=== PATIENT | female | born 1955 | race Hispanic/Latino ===

== ENCOUNTER → 2023-10-05 | Outpatient (CLI) | payer OTHER, MEDICARE ==
[2023-10-05 12:43] LABS: CREATININE 0.8 mg/dL (0.5-1.0); MAGNESIUM 1.8 mg/dL (1.80-2.40); POTASSIUM 4.4 mmol/L (3.5-5.1)
== END | disposition home or self-care (01) ==
LOC: LAB 08:41
PROVIDERS: ATTEND Internal Medicine Cardiovascular Disease
DX: R06.09 Other forms of dyspnea (principal)
CPT/HCPCS: 36415; 80048; 83735; 83880; 84100

== ENCOUNTER → 2023-10-18 | Outpatient (CLI) | payer OTHER, MEDICARE | END | disposition home or self-care (01) | LOC: RAH 14:02 | PROVIDERS: ATTEND Internal Medicine Cardiovascular Disease | DX: I35.8 Other nonrheumatic aortic valve disorders (principal); I51.7 Cardiomegaly; R06.00 Dyspnea, unspecified | CPT/HCPCS: 93306 ==

== ENCOUNTER → 2024-07-15 | Outpatient (CLI) | payer OTHER, MEDICARE ==
[2024-07-15 12:11] LABS: BASOPHILS # (AUTO) 0.05 K/uL (0.00-0.20); BASOPHILS % (AUTO) 0.7 % (0.0-5.0); EOSINOPHILS # (AUTO) 0.24 K/uL (0.00-0.70); EOSINOPHILS % (AUTO) 3.4 % (0.0-8.0); HEMATOCRIT 39.6 % (36-48); IMMATURE GRANULOCYTE ABSOLUTE 0.03 K/uL (0-1); LYMPHOCYTES # (AUTO) 2.9 K/uL (1.0-4.8); LYMPHOCYTES % (AUTO) 41.8 % (21.0-51.0); MEAN CORPUSCULAR HEMOGLOBIN 30.5 pg (27.0-33.0); MEAN CORPUSCULAR HGB CONC 32.8 g/dL (32.0-36.0); MONOCYTES # (AUTO) 0.5 K/uL (0.1-1.0); MONOCYTES % (AUTO) 6.4 % (3.0-13.0); NEUTROPHILS # (AUTO) 3.3 K/uL (1.8-7.7); NEUTROPHILS % (AUTO) 47.3 % (40.0-77.0); NUCLEATED RED BLOOD CELLS 0.3 % (0.0-0.19); PLATELET COUNT (AUTO) 154 K/uL (130-400); RED BLOOD CELL COUNT(AUTO) 4.26 MIL/uL (4.00-5.50); RED CELL DISTRIBUTION WIDTH 14.9 % (11.0-15.5)
[2024-07-15 12:33] LABS: CREATININE 0.6 mg/dL (0.5-1.0); POTASSIUM 4.6 mmol/L (3.5-5.1)
== END | disposition home or self-care (01) ==
LOC: LAB 11:04
PROVIDERS: ATTEND Urology
DX: R10.84 Generalized abdominal pain (principal)
CPT/HCPCS: 36415; 80048; 85025

== ENCOUNTER → 2024-08-13 | Outpatient (CLI) | payer OTHER, MEDICARE ==
[~2024-08-13] MED LIST: IOHEXOL 350 MG/ML 100ML INFUS..BTL IV ONE
--- NOTE | 2024-08-13 12:29 | HMCIMG ---
CT UROGRAM (ABD/PEL WWO) HISTORY: Abdominal pain COMPARISON: None TECHNIQUE: Multiple sequential axial images of the abdomen and pelvis were obtained from the dome of the diaphragm through symphysis pubis. Patient was given 100 cc of Omnipaque through intravenous route. Oral contrast was not given. CT urogram was performed. FINDINGS: No pleural effusion is seen bilaterally. There is no evidence of parenchymal disease or pulmonary nodule of the visualized lower lungs. Degenerative changes of the thoracolumbar spine are present. The heart is not enlarged. Liver is enlarged measuring 15.3 cm. There are multiple hepatic cysts with the largest in the left hepatic lobe measuring 2.1 cm. The liver, spleen, adrenal glands and pancreas are unremarkable. There is no evidence of hydronephrosis bilaterally. No evidence of renal stone is seen. Fecal material is seen in the colon. There are normal size retroperitoneal and mesenteric lymph nodes. No ascites is seen. Atherosclerotic changes are present. CT urogram shows no evidence of obstruction. Distal portion of the left ureter is not well visualized. Pelvic sidewalls are symmetric bilaterally. Bladder is well distended without wall thickening. IMPRESSION: 1. CT urogram shows no evidence of obstruction. Distal portion of the left ureter is not well visualized. CT was performed with one or more following dose reduction techniques: automated exposure control, adjustment of the mA and kv according to patient's size, or use of a iterative reconstruction technique.
== END | disposition home or self-care (01) ==
LOC: RAH 07:38
PROVIDERS: ATTEND Urology
DX: K76.89 Other specified diseases of liver (principal); R16.0 Hepatomegaly, not elsewhere classified; M47.815 Spondylosis without myelopathy or radiculopathy, thoracolumbar region; I70.90 Unspecified atherosclerosis; R10.84 Generalized abdominal pain
CPT/HCPCS: 74178; Q9967

== ENCOUNTER 2024-12-20 19:38 | Emergency (ER) | payer OTHER, MEDICARE ==
[~2024-12-20] VITALS: Ht 152.4 cm; Wt 77.1 kg
--- NOTE | 2024-12-20 21:26 | HMCIMG ---
EXAM: CR Left Shoulder, 2 views. CLINICAL HISTORY: Injury. COMPARISON: None. FINDINGS: No acute fracture or aggressive appearing osseous lesion. Mild diffuse osteopenia. Moderate glenohumeral and acromioclavicular osteoarthritis with a large osteophyte projecting along the medial surface of the humeral head. The soft tissues are unremarkable. IMPRESSION: No acute bony changes. Mild diffuse osteopenia. Moderate glenohumeral and acromioclavicular osteoarthritis with a large osteophyte projecting along the medial surface of the humeral head. /Kirkman
[2024-12-20] MEDS ORDERED: KETO10TA2 PO (22:32)
[2024-12-20] MEDS ORDERED: CYCL10TA16 PO (22:32)
--- NOTE | 2024-12-20 22:33 | ERN ---
General Chief Complaint: Shoulder Injury/Pain Stated Complaint: L SHOULDER STRAIN Time Seen by MD: 19:58 Time Seen by Midlevel: 19:58 Source: patient History of Present Illness Initial Comments 61-year-old female with who is hard of hearing presents to the emergency department with left shoulder pain after she carried heavy things in her home while she was cleaning. Denies any direct injury or fall. They are at denies any other symptoms. Patient was here for symptom control. Allergies: Coded Allergies: No Known Drug Allergies (Unverified Allergy, Unknown, 12/20/24) Past Medical History Past Medical History: Anxiety, Hypertension Past Surgical History: Unknown ROS Dictation CONSTITUTIONAL: Negative except for HPI HEAD/FACE: Negative except for HPI EENT: Negative except for HPI RESPIRATORY: Negative except for HPI GASTROINTESTINAL/ABDOMINAL: Negative except for HPI GENITOURINARY: Negative except for HPI MUSCULOSKELETAL: Negative except for HPI INTEGUMENTARY: Negative except for HPI NEUROLOGICAL/PSYCH: Negative except for HPI HEMATOLOGIC/LYMPHATIC: Negative except for HPI All Systems Negative, Except as noted above. 13 point review of systems assessed and all negative except for above. Physical Exam Physical Exam Dictation Vital Signs reviewed General Appearance: Alert, oriented x 3, no acute distress, well developed, nourished. Head and Face: non-traumatic. Eyes: PERRL, pink conjunctivas, eyelid no trauma, anterior chamber with arcus senilis. Ears: Pinnas intact and no signs of trauma or erythema ear canals clear and no discharge TM no erythema Nose: No discharge, no bleeding. Oropharynx: Mouth normal, tongue pink, pharynx clear,no erythema, tonsils no exudates, no abscesses noted, mucous membrane moist Neck: Supple, non-tender, no thyromegaly, no masses, no JVD, no bruits Breast:Deferred Chest:No tenderness, no crepitus, no paradoxical movement, no retractions Lungs:Clear, well-ventilated, symmetric, no rales, no wheezing, no rhonchi, no stridor, good breath sounds bilaterally Heart: Regular rate, regular rhythm, no murmur, no gallops Vascular: no peripheral edema, Abdomen: Soft, positive bowel sounds, nondistended, no guarding, nontender, no rebound, no masses no hepatomegaly, no splenomegaly, no Lee's sign, no hernias. Rectal: Deferred Genital: Deferred Neurological: Normal speech, motor function intact, sensory function intact Musculoskeletal: Neck nontender, full range of motion, back nontender, full range of motion, Extremities: nontender, full range of motion Skin: Color pink, dry, no turgor, no rash, no lacerations, no abrasions, no contusions. Lymphatic: Deferred MDM MDM: Differential diagnosis: Shoulder strain, contusion, fracture There are no social concerns with this patient. Prescription drug management Prescriptions will include: Toradol and Flexeril Medical management and examination interpretation discussions were had by me with other qualified healthcare professionals as indicated for the patient's care. ED Course Orders Procedure Category Date Status Time Shoulder Comp 2+Vws Lt RAD 12/20/24 Resulted 19:45 Ketorolac PHA 12/20/24 Logged Tromethamine 30mg/Ml 22:30 Current Medications Medications (Trade) Dose Ordered Sig/Paco Route PRN Reason Start Time Stop Time Status Last Admin Dose Admin Ketorolac Tromethamine (toRADol) 30 mg ONCE ONCE IM 12/20/24 22:30 12/20/24 22:31 UNV Vital Signs Date Time Temp Pulse Resp B/P (MAP) Pulse Ox O2 Delivery O2 Flow Rate FiO2 12/20/24 20:45 98.2 89 18 155/90 96 Room Air* 0 12/20/24 19:50 98.4 87 19 158/89 98 Room Air* 0 12/20/24 19:39 98.2 62 17 184/75 98 Room Air 0 DX & DISP Disposition: Discharge Departure Impression: Primary Impression: Left shoulder strain Additional Impression: Arthritis of left shoulder Condition: Stable Scripts Cyclobenzaprine HCl (Flexeril) 10 Mg Tab 10 MG PO TID for muscle sstiffness for 5 Days, #15 TAB 0 Refills Prov: OUSMANE TRAN 12/20/24 Ketorolac Tromethamine (Ketorolac Tromethamine) 10 Mg Tablet 1 TAB PO BID for pain for 5 Days, #10 TAB 0 Refills Prov: OUSMANE TRAN 12/20/24 Referrals: AYLEEN MATOS MD (PCP) Time of Disposition: 22:32 I have reviewed the case, and I agree with, Diagnosis and Plan I performed the substantive portion of the visit. I have reviewed and personally made and approve the management plan that is documented in the note by myself or the ZEINA. I acknowledge for responsibility for the patient's management plan. OUSMANE TRAN Dec 20, 2024 22:33
[2024-12-20 22:45] VITALS: BP 149/85; PULSE 83; RESP 17; TEMP 98; O2SAT 99
== END 2024-12-20 22:45 | disposition home or self-care (01) ==
LOC: EDH 19:38
DX: S46.912A Strain of unspecified muscle, fascia and tendon at shoulder and upper arm level, left arm, initial encounter (principal); M19.012 Primary osteoarthritis, left shoulder; I10 Essential (primary) hypertension; X58.XXXA Exposure to other specified factors, initial encounter; Y93.89 Activity, other specified; Y92.89 Other specified places as the place of occurrence of the external cause; Y99.8 Other external cause status
CPT/HCPCS: 99285; 73030; 96372; J1885

== ENCOUNTER → 2024-12-30 | Emergency (ER) | payer OTHER, MEDICARE ==
[~2024-12-30] MED LIST changes: +CYCL10TA16 PO; -IOHEXOL 350 MG/ML 100ML INFUS..BTL IV ONE; +KETO10TA2 PO
--- NOTE | 2024-12-30 19:23 | NUR ---
CALLED FOR PT FROM [facility] FOR TRIAGE. NO RESPONSE. PT NOT FOUND IN LOBBY.
--- NOTE | 2024-12-30 19:39 | NUR ---
CALLED FOR PT AGAIN/ NO RESPONSE; PT NOT FOUND IN LOBBY.
== END ==
LOC: EDH 18:38
DX: F41.9 Anxiety disorder, unspecified (principal); Z53.21 Procedure and treatment not carried out due to patient leaving prior to being seen by health care provider

== ENCOUNTER → 2025-02-04 | Outpatient (CLI) | payer OTHER, MEDICARE ==
[~2025-02-04] MED LIST changes: +CYCL5TAB3 PO; +IBUP-1492 PO; +IOHEXOL 350 MG/ML 100ML INFUS..BTL IV ONE
--- NOTE | 2025-02-16 18:21 | CARDIOLOGY ---
RAD REPORT: CORNARY CT ANGIO RADIOLOGY REPORT: CORONARY CT ANGIOGRAPHY DATE: February 04, 2025 QUALITY: Excellent CLINICAL HISTORY AND INDICATION: [ LOJA ] TECHNIQUE: After obtaining a preliminary director business intelligence image, contrast imaging performed on an [employer] [id number] scanner. A dedicated, limited window, coronary imaging protocol was used, with single breath-hold, retrospective ECG gating, and automated arrhythmia rejection. 100 cc of low osmolar contrast agent: Omnipaque 350 was delivered via a 18-gauge IV catheter in the right antecubital fossa, using a power injector and followed by 60 cc of normal saline bolus as a chaser. Collimated images were reformatted at 0.5 mm intervals, and sent to an offline independent workstation for interpretation, using 3D anatomic reconstructions: Curved multiplanar reconstructions, maximum intensity projections, and multiplanar imaging. No metoprolol was administered prior to scanning due to low baseline heart rate. 0.4 mg SL nitroglycerin was given. CORONARY ARTERY DESCRIPTIONS: The coronary arteries arise in normal position. Left main coronary artery: Normal caliber vessel that bifurcates into the LAD and LCx. No stenosis. Left anterior descending coronary artery: Normal caliber vessel and gives rise to diagonal and septal branches. There is calcified plaque in the proximal LAD with 20-30% stenosis. Left circumflex coronary artery: Normal caliber, nondominant and gives rise to three OM branches. No stenosis. Right coronary artery: Large, dominant vessel giving rise to the PL and PDA branches. No stenosis. CAD-RADs: 2, mild non-obstructive CAD. Thoracic Aorta: Normal diameter. Emily Obrien MD Cardiovascular Disease [facility] EMILY OBRIEN MD Feb 16, 2025 18:21
== END | disposition home or self-care (01) ==
LOC: RAH 08:00
PROVIDERS: ATTEND Internal Medicine Cardiovascular Disease
DX: I25.10 Atherosclerotic heart disease of native coronary artery without angina pectoris (principal); R06.00 Dyspnea, unspecified
CPT/HCPCS: 75574; J3490; Q9967

== ENCOUNTER → 2025-04-30 | Outpatient (CLI) | payer OTHER, MEDICARE ==
[~2025-04-30] MED LIST changes: -IOHEXOL 350 MG/ML 100ML INFUS..BTL IV ONE
--- NOTE | 2025-04-30 11:35 | HMCIMG ---
CLINICAL INDICATION: Age-related osteoporosis without current pathological fracture COMPARISON: None TECHNIQUE: Bone densitometry is performed of the lumbar spine and left hip. FINDINGS: Total BMD of lumbar spine is 1.427 g/cm2 with a T-score of 3.5 and Z-score is 5.5. Total BMD of left hip is 0.906 g/cm2 with a T-score of -0.4 and Z-score is 1.0. FRAX SCORE: The 10 year fracture risk for a major osteoporotic fracture and hip fracture major osteoporotic fracture 4.8% and hip fracture 0.5% IMPRESSION: 1. Osteopenia of left hip 2. Normal lumbar spine 3. Recommend follow-up in 13 months World Health Organization criteria for BMD interpretation classify patients as Normal (T-score at or above -1.0), Osteopenic (T-score between -1.0 and -2.5), or Osteoporotic (T-score at or below -2.5). FRAX SCORE: A. All treatment decisions require clinical judgment and consideration of individual patient factors, including patient preferences, comorbidities, previous drug use, risk factors not captured in the FRAX model (e.g., frailty, falls, vitamin D deficiency, increased bone turnover, interval significant decline in bone density) and possible [id number]-estimation of fracture risk by FRAX. B. In addition, the NOF Guide recommends that FDA-approved medical therapies be considered in postmenopausal women and men age greater than or equal to 50 years with a: i. Hip or vertebral (clinical or morphometric) fracture. ii. T-score of less than or equal to -2.5 at the spine or hip. iii. Ten-year fracture probability by FRAX of greater than or equal to 3% for hip fracture of greater than or equal to 20% for major osteoporotic fracture.
== END | disposition home or self-care (01) ==
LOC: RAH 09:23
PROVIDERS: ATTEND Family Medicine
DX: M81.0 Age-related osteoporosis without current pathological fracture (principal); M85.88 Other specified disorders of bone density and structure, other site
CPT/HCPCS: 77080